=== PATIENT | female | born 1955 | race Caucasian/White ===

== ENCOUNTER 2018-09-28 07:32 | Day surgery (SDC) | payer MEDICARE, MEDICAID ==
[~2018-09-28] VITALS: Ht 165.1 cm; Wt 93.2 kg
[2018-09-28] VITALS (8 sets, daily range): BP systolic 107–121; BP diastolic 54–72
[2018-09-28] MEDS ORDERED: [UNRECOGNIZED DRUG - OTHER] PO (07:54)
[2018-09-28] MEDS ORDERED: TOPI100T18 PO (07:55)
[2018-09-28] MEDS ORDERED: SIMV40TA PO (07:56)
[2018-09-28] MEDS ORDERED: CHOL100046 PO (07:56)
[2018-09-28] MEDS ORDERED: fentaNYL/PF 50MCG/1 ML 2ML syringe ONE (08:42)
[2018-09-28] MEDS ORDERED: diphenhydrAMINE 50 mg/ml inj ONE (08:43)
[2018-09-28] MEDS ORDERED: LIDOcaine Viscous 15ml cup ONE (08:43)
[2018-09-28] MEDS ORDERED: MIDAZolam 5mg/5ml vial ONE (08:43)
[2018-09-28] MEDS ORDERED: glucagon, human recombinant 1mg kit ONE ×2 (08:43→08:44)
[2018-09-28] MEDS ORDERED: iohexol 300 MG/1 ML 50ml polymer ONE (08:44)
[2018-09-28] MEDS ORDERED: meperidine/PF 100mg/ml syringe ONE (08:44)
== END 2018-09-28 11:39 | disposition home or self-care (01) ==
LOC: GI LAB 07:32
PROVIDERS: ATTEND Internal Medicine Gastroenterology
DX: K80.51 Calculus of bile duct without cholangitis or cholecystitis with obstruction (principal); E78.5 Hyperlipidemia, unspecified; K21.9 Gastro-esophageal reflux disease without esophagitis; Z86.69 Personal history of other diseases of the nervous system and sense organs; Z79.899 Other long term (current) drug therapy; Z98.890 Other specified postprocedural states
CPT/HCPCS: 43262; 43264; 74328; 99153; G0500; J1200; J1610; J2175; J2250; J3010; J7030; Q9967; 99152; A4620

== ENCOUNTER 2021-02-20 05:20 | Day surgery (SDC) | payer MEDICARE, MEDICAID ==
[2021-02-12 12:02] LABS: EOSINOPHILS # (AUTO) 0.2 X10'3 (0-0.9); EOSINOPHILS % (AUTO) 5.1 % (0-6); LYMPHOCYTES # (AUTO) 1.5 X10'3 (1.1-4.8); LYMPHOCYTES % (AUTO) 43.1 % (21-51); MEAN CORPUSCULAR HEMOGLOBIN 32.9 PG (27.0-31.0); MEAN CORPUSCULAR HGB CONC 33.8 g/dL (33.0-36.5); MEAN CORPUSCULAR VOLUME 97.5 FL (78-98); MEAN PLATELET VOLUME 8.1 FL (7.4-10.4); MONOCYTES # (AUTO) 0.4 X10'3 (0-0.9); MONOCYTES % (AUTO) 11.8 % (2-12); NEUTROPHILS # (AUTO) 1.3 X10'3 (1.8-7.7); PRE OP HEMATOCRIT 41.5 % (35.0-45.0); PRE OP PLATELET COUNT 203 X10'3 (140-440); RED BLOOD COUNT 4.26 X10'6 (4.20-5.60); RED CELL DISTRIBUTION WIDTH 12.5 % (11.5-14.5)
[2021-02-12 12:15] LABS: PRE OP PROTIME 10.6 SECONDS (9.0-12.0)
[2021-02-12 12:16] LABS: ALBUMIN 3.7 G/DL (3.4-5.0); ALBUMIN/GLOBULIN RATIO 1.2 (1.1-1.5); ALKALINE PHOSPHATASE 99 IU/L (46-116); BLOOD UREA NITROGEN 11 MG/DL (7-18); BUN/CREATININE RATIO 13.1 (6.6-38.0); CALCIUM 9.1 MG/DL (8.5-10.1); CHLORIDE 109 MMOL/L (99-107); CREATININE 0.84 MG/DL (0.40-0.90); PRE OP ALT 24 U/L (30-65); PRE OP ANION GAP 7 (8-16); PRE OP AST 29 U/L (10-37); PRE OP BILIRUB, TOTAL 0.3 MG/DL (0.0-1.0); PRE OP GLUCOSE 91 MG/DL (70-104); PRE OP POTASSIUM 3.9 MMOL/L (3.4-5.1); PRE OP SODIUM 146 MMOL/L (135-145); TOTAL CARBON DIOXIDE 30.1 MMOL/L (24-32); TOTAL PROTEIN 6.8 G/DL (6.4-8.2); eGFR 68 ML/MIN
[2021-02-20] VITALS (27 sets, daily range): BP systolic 75–120; BP diastolic 34–70
[~2021-02-20] VITALS: Ht 167.6 cm; Wt 82.1 kg
[~2021-02-20 05:20] MED LIST: CHOL100046 PO; SIMV40TA PO; TOP100T PO; [UNRECOGNIZED DRUG - OTHER] PO; ringers solution, lacted 1,000 ML IV SCH
[2021-02-20] MEDS ORDERED: oxyCODONE SR 10mg (sust. release) tab -2 tabs (20mg) PO ONE (05:30)
[2021-02-20] MEDS ORDERED: famotidine 20mg tablet PO ONE (05:30)
[2021-02-20] MEDS ORDERED: cefazolin/dext.iso 2gm/100ml IV ONE (05:30)
[2021-02-20] MEDS ORDERED: acetaminophen 325mg tablet PO ONE (05:30)
[2021-02-20] MEDS ORDERED: vancomycin 1,500 MG in NS 300ml IV soln IV ONE (05:30)
[2021-02-20] MEDS ORDERED: celeCOXIB 100mg capsule PO ONE (05:30)
[2021-02-20] MEDS ORDERED: tranexamic acid 1gm/0.7% sal. 100 ML IV ONE (05:30)
[2021-02-20] MEDS ORDERED: metoclopramide 5 mg/ml inj IV ONE (05:30)
[2021-02-20] MEDS ORDERED: gabapentin 300mg capsule PO ONE (05:30)
[2021-02-20] MEDS ORDERED: LIDOcaine 1% (10mg/ml) 2ml vial ONE (05:59)
[2021-02-20] MEDS ORDERED: HYDROmorphone 1 mg/ml syringe IV PRN (06:35)
[2021-02-20] MEDS ORDERED: ondansetron/PF 4mg/2ml inj IV PRN ×2 (06:35→08:05)
[2021-02-20] MEDS ORDERED: diphenhydrAMINE 25mg capsule PO PRN ×2 (06:35)
[2021-02-20] MEDS ORDERED: HYDROmorphone inj. 0.5 MG/0.5 ML DISP.SYRIN IV PRN (06:35)
[2021-02-20] MEDS ORDERED: magnesium hydroxide 30ml (MOM) UD suspension PO PRN (06:35)
[2021-02-20] MEDS ORDERED: bisacodyl 10mg suppository rectal RC PRN (06:35)
[2021-02-20] MEDS ORDERED: acetaminophen 325mg tablet PO PRN (06:35)
[2021-02-20] MEDS ORDERED: oxyCODONE/APAP 10/325mg tablet PO PRN (06:35)
[2021-02-20] MEDS: potassium cl 20mEq in 1/2 NS 1,000 ML IV SCH ×2 (06:35→14:35)
[2021-02-20] MEDS ORDERED: ketorolac trometh. 30mg/ml inj. ONE (06:42)
[2021-02-20] MEDS ORDERED: epiNEPHrine 1 mg/ml inj ONE (06:42)
[2021-02-20] MEDS ORDERED: ROPIVAcaine 0.5% (5mg/ml) 30ml vial ONE ×2 (06:42→08:18)
[2021-02-20] MEDS ORDERED: vancomycin 1,000mg inj ONE (06:42)
[2021-02-20] MEDS ORDERED: cloNIDine hcl/PF 100mcg/ml inj ONE (06:42)
[2021-02-20] MEDS ORDERED: fentaNYL/PF 50MCG/1 ML 2ML syringe ONE (07:01)
[2021-02-20] MEDS ORDERED: MIDAZolam 1mg/ml 10ml vial ONE (07:01)
[2021-02-20] MEDS ORDERED: ePHEDrine 50MG/ML INJ. ONE (07:40)
[2021-02-20] MEDS: multivitamins, therapeutics tablet PO SCH (08:00)
[2021-02-20] MEDS ORDERED: [UNRECOGNIZED DRUG - OTHER] PO SCH (08:00)
[2021-02-20] MEDS ORDERED: non-formulary drug (Simvastatin (Zocor) 1 TAB) PO SCH (08:00)
[2021-02-20] MEDS ORDERED: ROPIVAcaine 0.2% (10 MG/5 ML) BOLUS INJECTION ADDCANAL PRN (08:05)
[2021-02-20] MEDS ORDERED: meperidine/PF 25mg/ml syringe IV PRN ×3 (08:05)
[2021-02-20] MEDS ORDERED: proCHLORperazine 10 MG/2 ml inj IV PRN (08:05)
[2021-02-20] MEDS ORDERED: morphine 2 MG/ML inj. syringe IV PRN (08:05)
[2021-02-20] MEDS ORDERED: ringers solution, lacted 1,000 ML IV SCH (08:05)
[2021-02-20] MEDS ORDERED: morphine 4 MG/ML inj SYRINge IV PRN (08:05)
[2021-02-20] MEDS: aspirin 325mg tablet PO SCH (08:30)
--- NOTE | 2021-02-20 09:00 | NUR ---
Received from OR via BED, accompanied by Anesthesiologist DR TANG and report given by Anesthesiologist. PT DROWSY, DENIES PAIN, LEFT KNEE W/DRSG, LEG WRAP, ICE PACK, ROGELIO DRSG W/GREEN LIGHT ILLUMINATION, ACB CATHETER INTACT. Addendum: 02/20/21 at 0936 by Marley Page RN Amended: Links added.
[2021-02-20] MEDS: ROPIVAcaine 0.2%/PF PUMP/bolus 545 ML ADDCANAL SCH (11:05)
--- NOTE | 2021-02-20 11:20 | NUR ---
PT AWAKE AND NON-SYMPTOMATIC W/LOWER BP, PT TALKING, AND TAKING IN ORAL FLUIDS, DR TANG IN AND OKAYED PT TO GO TO THE FLOOR, Report called to receiving nurse. Transferred via BED BY [facility], 1 BAG OF BELONGINGS W/GLASSES SENT W/PT TO ROOM 4014B, CALLED NURSES STATION AND NOTIFIED OF PTS ARRIVAL. Special Issues communicated to receiving nurse. YES. Addendum: 02/20/21 at 1129 by Marley Page RN Amended: Links added.
--- NOTE | 2021-02-20 11:49 | NUR ---
Patients blood pressure is 75/37 with a map of 55. She is awake, alert and oriented x4 talking to me in no acute distress. Strong pedal pulses, no s/s of bleeding on incision or ROGELIO dressing. 250ml bolus being given of lactated ringers.
[2021-02-20] MEDS ORDERED: PHEN100C12 PO (11:56)
[2021-02-20] MEDS ORDERED: tranexamic acid inj. 820 MG in normal saline 100ml IV soln 100 ML IV ONE (12:00)
[2021-02-20] MEDS: topiramate 100mg tablet PO SCH (12:20)
[2021-02-20] MEDS: gabapentin 300mg capsule PO SCH ×3 (12:20→20:25)
[2021-02-20] MEDS: oxyCODONE/APAP 10/325mg tablet PO PRN (12:30)
--- NOTE | 2021-02-20 12:32 | NUR ---
Blood pressure has still remained low with a map below 60. Second bolus of 250 cc NS given. TXA infusing now.
[2021-02-20] MEDS ORDERED: phenytoin sod ER 100mg capsule PO SCH (13:00)
--- NOTE | 2021-02-20 13:04 | NUR ---
Transexamic acid infused. Blood pressure now is 76/46 with a map of 56 heart rate of 60. She is alert and oriented, dressing is still clean dry and intact. Called Dr. Shields in regards to the patients persistent hypotension. Left message awaiting a call back.
--- NOTE | 2021-02-20 14:12 | NUR ---
Recieved orders from Dr. Shields for a liter bolus. Infusing now.
[2021-02-20] MEDS: cefazolin/dext.iso 2gm/100ml 100 ML IV SCH (16:13)
[2021-02-20] MEDS ORDERED: phenytoin sod ER 100mg capsule PO ONE (16:25)
--- NOTE | 2021-02-20 16:27 | NUR ---
Called and spoke with Dr. Shields regarding blood pressure after liter bolus. Her pressure on last reading was 105/36 with a map of 64 he is fine with this reading. IVF still infusing 125/hr. Also addressed home medication of phenytoin, patient takes 400mg in the morning not 100mg four times a day he said this is fine.
--- NOTE | 2021-02-20 18:18 | NUR ---
Problems reprioritized. Patient report given, questions answered & plan of care reviewed with Yumiko WATERS.
--- NOTE | 2021-02-20 18:46 | NUR ---
Patient in room ORTHO 4014. I have received report from Ashley WATERS and had the opportunity to ask questions and assume patient care.
[2021-02-20] MEDS ORDERED: VANCOMYCIN 1,500MG inj. 1,500 MG in normal saline 500ml IV soln 500 ML IV SCH (20:00)
[2021-02-20] MEDS: sennosides 8.6mg tablet PO SCH (20:25)
[2021-02-21] VITALS (7 sets, daily range): BP systolic 82–145; BP diastolic 42–62
[2021-02-21] MEDS: potassium cl 20mEq in 1/2 NS 1,000 ML IV SCH ×4 (00:18→22:35)
[2021-02-21] MEDS: cefazolin/dext.iso 2gm/100ml 100 ML IV SCH (00:19)
--- NOTE | 2021-02-21 04:39 | NUR ---
I have reviewed SRN assessment findings, edited as needed.
--- NOTE | 2021-02-21 06:33 | NUR ---
Problems reprioritized. Patient report given, questions answered & plan of care reviewed with Marj WATERS.
[2021-02-21 06:37] LABS: BASOPHILS % (AUTO) 0.5 % (0-1); EOSINOPHILS # (AUTO) 0.3 X10'3 (0-0.9); EOSINOPHILS % (AUTO) 5.3 % (0-6); HEMATOCRIT 34.5 % (35.0-45.0); HEMOGLOBIN 11.6 g/dl (12.0-16.0); LYMPHOCYTES # (AUTO) 1.1 X10'3 (1.1-4.8); LYMPHOCYTES % (AUTO) 22.6 % (21-51); MEAN CORPUSCULAR HEMOGLOBIN 33.2 PG (27.0-31.0); MEAN CORPUSCULAR HGB CONC 33.6 g/dL (33.0-36.5); MEAN CORPUSCULAR VOLUME 98.7 FL (78-98); MEAN PLATELET VOLUME 8.7 FL (7.4-10.4); MONOCYTES # (AUTO) 0.6 X10'3 (0-0.9); MONOCYTES % (AUTO) 11.6 % (2-12); NEUTROPHILS # (AUTO) 2.9 X10'3 (1.8-7.7); PLATELET COUNT 164 X10'3 (140-440); RED CELL DISTRIBUTION WIDTH 12.6 % (11.5-14.5); WHITE BLOOD COUNT 4.9 X10'3 (4.5-11.0)
[2021-02-21 07:15] LABS: POTASSIUM 4.4 MMOL/L (3.5-5.1)
[2021-02-21] MEDS ORDERED: normal saline 1000ml 1,000 ML IV ONE (07:20)
[2021-02-21] MEDS: topiramate 100mg tablet PO SCH (07:37)
[2021-02-21] MEDS: aspirin 325mg tablet PO SCH (07:37)
[2021-02-21] MEDS: multivitamins, therapeutics tablet PO SCH (07:37)
[2021-02-21] MEDS: phenytoin sod ER 100mg capsule PO SCH (07:37)
[2021-02-21] MEDS: atorvastatin 20mg tablet PO SCH (07:37)
[2021-02-21] MEDS: gabapentin 300mg capsule PO SCH ×3 (07:37→19:45)
[2021-02-21 08:06] LABS: ANION GAP 7 (8-16); CHLORIDE 112 MMOL/L (99-107); SODIUM 146 MMOL/L (135-145)
[2021-02-21] MEDS: oxyCODONE/APAP 10/325mg tablet PO PRN (13:41)
--- NOTE | 2021-02-21 14:48 | NUR ---
PTS DAUGHTER UPSET THAT HER COULD NOT COME UP AT THE SAME TIME HER. DAUGHTER YELLED AT ME THAT IT WAS UP TO ME IF HE CAN COME UP OR NOT, I EXPLAINED THAT IT WAS HOSPITAL POLICY, NOT MINE. SHE YELLED THAT I WAS NOT TAKING CARE OF HER MOM, STATED THAT I WAS ONLY IN THE ROOM ONE TIME. NOT TRUE HOWEVER PER RECORDS STATING OTHER ISSA. I EXPLAINED THAT I WOULD GO GET CHARGE NURSE AND THEY CAN EXPRESS THEIR FEELING TO HIM.
--- NOTE | 2021-02-21 17:30 | NUR ---
NOTIFIED DR FELDMAN RE: PT WILL STAY FOR ANOTHER NIGHT DUE TO DECREASED BP WHEN AMBULATING WITH PT
--- NOTE | 2021-02-21 18:37 | NUR ---
Problems reprioritized. Patient report given, questions answered & plan of care reviewed with JAYDON WATERS.
[2021-02-21] MEDS: sennosides 8.6mg tablet PO SCH (19:45)
[2021-02-21] MEDS: celeCOXIB 100mg capsule PO SCH (19:46)
--- NOTE | 2021-02-22 01:03 | NUR ---
reviewed assessment and edited as needed.
[2021-02-22] MEDS: ROPIVAcaine 0.2%/PF PUMP/bolus 545 ML ADDCANAL SCH (05:37)
[2021-02-22 06:00] VITALS: BP 99/45
--- NOTE | 2021-02-22 06:25 | NUR ---
Patient in room ORTHO 4014. I have received report from Yumiko Pineda and had the opportunity to ask questions and assume patient care.
[2021-02-22 06:48] LABS: BASOPHILS % (AUTO) 0.3 % (0-1); EOSINOPHILS # (AUTO) 0.2 X10'3 (0-0.9); EOSINOPHILS % (AUTO) 3.4 % (0-6); HEMATOCRIT 34.5 % (35.0-45.0); HEMOGLOBIN 11.6 g/dl (12.0-16.0); LYMPHOCYTES # (AUTO) 1.4 X10'3 (1.1-4.8); LYMPHOCYTES % (AUTO) 22.9 % (21-51); MEAN CORPUSCULAR HEMOGLOBIN 33.1 PG (27.0-31.0); MEAN CORPUSCULAR HGB CONC 33.5 g/dL (33.0-36.5); MEAN CORPUSCULAR VOLUME 98.7 FL (78-98); MEAN PLATELET VOLUME 8.7 FL (7.4-10.4); MONOCYTES # (AUTO) 0.8 X10'3 (0-0.9); MONOCYTES % (AUTO) 13.4 % (2-12); NEUTROPHILS # (AUTO) 3.6 X10'3 (1.8-7.7); PLATELET COUNT 167 X10'3 (140-440); RED CELL DISTRIBUTION WIDTH 12.8 % (11.5-14.5)
--- NOTE | 2021-02-22 07:03 | NUR ---
Patient in room ORTHO 4014. I have received report from EVELIN Calderon and had the opportunity to ask questions and assume patient care.
[2021-02-22 08:15] VITALS: BP_SYST 118; BP_SYST 135; BP_DIAS 54; BP_DIAS 60; BP_DIAS 61
[2021-02-22] MEDS: phenytoin sod ER 100mg capsule PO SCH (08:29)
[2021-02-22] MEDS: aspirin 325mg tablet PO SCH (08:30)
[2021-02-22] MEDS: atorvastatin 20mg tablet PO SCH (08:30)
[2021-02-22] MEDS: celeCOXIB 100mg capsule PO SCH (08:30)
[2021-02-22] MEDS: gabapentin 300mg capsule PO SCH (08:30)
[2021-02-22] MEDS: topiramate 100mg tablet PO SCH (08:30)
[2021-02-22] MEDS: multivitamins, therapeutics tablet PO SCH (08:30)
--- NOTE | 2021-02-22 08:56 | NUR ---
Pt being DC to home with family, her daughter is assuming care for her. Pt verbalizes understanding of all DC orders, wound care, OnQ use and DC, showering, activity, diet and the importance of following up with Dr Shields in 2 weeks. Pt asked many questions, all, answered. pt stated her daughter was going to help her get dress and take her home. Milad charge nurse aware of the discharge, education and follow up. pt educated on S & S of infection and when to call doctor benedict or come to the ED.
== END 2021-02-22 09:30 | disposition home or self-care (01) ==
LOC: PAS 05:20 → ORTHO 4S 06:39 → PAS 02-22 09:30
PROVIDERS: ATTEND Orthopaedic Surgery
DX: M17.12 Unilateral primary osteoarthritis, left knee (principal); M21.062 Valgus deformity, not elsewhere classified, left knee; G40.909 Epilepsy, unspecified, not intractable, without status epilepticus; F31.9 Bipolar disorder, unspecified; M19.072 Primary osteoarthritis, left ankle and foot; M85.80 Other specified disorders of bone density and structure, unspecified site; G89.18 Other acute postprocedural pain; E66.9 Obesity, unspecified; Z68.29 Body mass index [BMI] 29.0-29.9, adult; Z79.899 Other long term (current) drug therapy; Z98.890 Other specified postprocedural states; Z20.822 Contact with and (suspected) exposure to COVID-19; Z79.82 Long term (current) use of aspirin; Z79.01 Long term (current) use of anticoagulants
CPT/HCPCS: 27447; 36415; 64448; 71046; 73560; 76937; 80051; 80053; 82948; 85025; 85610; 85730; 86885; 86900; 86901; 87081; 97110; 97116; 97530; C1713; C1776; J0171; J0735; J1885; J2001; J2250; J2765; J2795; J3010; J3370; J7030; J7040; J7120; U0003; U0005; A4215; A7000; G0378; J3480

== ENCOUNTER 2021-04-08 13:08 | Day surgery (SDC) | payer MEDICARE, MEDICAID ==
[~2021-04-08] VITALS: Ht 165.1 cm; Wt 75.0 kg
[2021-04-08] VITALS (8 sets, daily range): BP systolic 110–139; BP diastolic 50–76
[~2021-04-08 13:08] MED LIST changes: +PHEN100C12 PO; -[UNRECOGNIZED DRUG - OTHER] PO; -ringers solution, lacted 1,000 ML IV SCH
[2021-04-08] MEDS ORDERED: fentaNYL/PF 50MCG/1 ML 2ML syringe ONE ×2 (13:37→13:38)
[2021-04-08] MEDS ORDERED: glucagon, human recombinant 1mg kit ONE (13:38)
[2021-04-08] MEDS ORDERED: LIDOcaine Viscous 15ml cup ONE (13:38)
[2021-04-08] MEDS ORDERED: levoFLOXACIN-Levaquin 500mg/D5 100 ML IV ONE (13:38)
[2021-04-08] MEDS ORDERED: iohexol 300 MG/1 ML 50ml polymer ONE (13:38)
[2021-04-08] MEDS ORDERED: MIDAZolam 1 MG/ML 5ML VIAL ONE (13:38)
[2021-04-08] MEDS ORDERED: diphenhydrAMINE 50 mg/ml inj ONE (13:47)
[2021-04-08] MEDS ORDERED: VITAMIN D PO (13:55)
== END 2021-04-08 16:10 | disposition home or self-care (01) ==
LOC: GI LAB 13:08
PROVIDERS: ATTEND Internal Medicine Gastroenterology
DX: K80.50 Calculus of bile duct without cholangitis or cholecystitis without obstruction (principal); K83.8 Other specified diseases of biliary tract; G40.909 Epilepsy, unspecified, not intractable, without status epilepticus; Z79.899 Other long term (current) drug therapy
CPT/HCPCS: 43264; 74328; 99153; C1769; G0500; J1200; J1610; J1956; J2250; J3010; J7040; Q9967; 99152; A4620

== ENCOUNTER 2021-07-10 07:07 | Day surgery (SDC) | payer MEDICARE, MEDICAID ==
[2021-07-04 12:07] LABS: BASOPHILS % (AUTO) 0.8 % (0-1); EOSINOPHILS # (AUTO) 0.1 X10'3 (0-0.9); EOSINOPHILS % (AUTO) 2.7 % (0-6); LYMPHOCYTES # (AUTO) 1.6 X10'3 (1.1-4.8); LYMPHOCYTES % (AUTO) 43.3 % (21-51); MEAN CORPUSCULAR HEMOGLOBIN 31.5 PG (27.0-31.0); MEAN CORPUSCULAR HGB CONC 32.4 g/dL (33.0-36.5); MEAN CORPUSCULAR VOLUME 97.1 FL (78-98); MEAN PLATELET VOLUME 7.7 FL (7.4-10.4); MONOCYTES # (AUTO) 0.4 X10'3 (0-0.9); MONOCYTES % (AUTO) 10.5 % (2-12); NEUTROPHILS # (AUTO) 1.6 X10'3 (1.8-7.7); NEUTROPHILS % (AUTO) 42.7 % (42-75); PRE OP HEMATOCRIT 43.5 % (35.0-45.0); PRE OP HEMOGLOBIN 14.1 g/dL (12.0-16.0); PRE OP PLATELET COUNT 238 X10'3 (140-440); RED BLOOD COUNT 4.48 X10'6 (4.20-5.60); RED CELL DISTRIBUTION WIDTH 13.9 % (11.5-14.5)
[2021-07-04 12:22] LABS: ALBUMIN 3.6 G/DL (3.4-5.0); ALBUMIN/GLOBULIN RATIO 1.1 (1.1-1.5); ALKALINE PHOSPHATASE 132 IU/L (46-116); BLOOD UREA NITROGEN 27 MG/DL (7-18); CHLORIDE 108 MMOL/L (99-107); PRE OP ALT 23 U/L (30-65); PRE OP ANION GAP 7 (8-16); PRE OP AST 20 U/L (10-37); PRE OP BILIRUB, TOTAL 0.3 MG/DL (0.0-1.0); PRE OP GLUCOSE 87 MG/DL (70-104); PRE OP POTASSIUM 3.9 MMOL/L (3.4-5.1); PRE OP SODIUM 147 MMOL/L (135-145); TOTAL CARBON DIOXIDE 31.6 MMOL/L (24-32); eGFR 63 ML/MIN
[2021-07-10] VITALS (14 sets, daily range): BP systolic 100–129; BP diastolic 46–66
[~2021-07-10] VITALS: Ht 165.1 cm; Wt 78.7 kg
[~2021-07-10 07:07] MED LIST changes: +BUPIVAcaine/PF 2.5mg/ml (0.25%) 10ml vial ONE; -CHOL100046 PO; +INDOCYANINE GREEN 25 MG/10 ML VIAL IV ONE; +LIDOcaine 1% 30ml preserv. free vial ONE; +VITAMIN D PO; +cefazolin/dext.iso 2gm/100ml IV ONE; +famotidine 20mg tablet PO ONE; +ringers solution, lacted 1,000 ML IV SCH
[2021-07-10] MEDS ORDERED: ondansetron/PF 4mg/2ml inj IV PRN (09:20)
[2021-07-10] MEDS ORDERED: ringers solution, lacted 1,000 ML IV SCH (09:20)
[2021-07-10] MEDS ORDERED: morphine 4 MG/ML inj SYRINge IV PRN (09:20)
[2021-07-10] MEDS ORDERED: labetalol 20mg/4ml (5mg/ml) syringe IV PRN (09:20)
[2021-07-10] MEDS ORDERED: hydrALAZINE 20mg/ml inj. IV PRN (09:20)
[2021-07-10] MEDS ORDERED: fentaNYL/PF 50MCG/1 ML 2ML syringe IV PRN ×2 (09:20)
[2021-07-10] MEDS ORDERED: morphine 2 MG/ML inj. syringe IV PRN (09:20)
[2021-07-10] MEDS ORDERED: sevoflurane 250ml liquid IH ONE (09:25)
[2021-07-10] MEDS ORDERED: dexamethasone sod phosphate 10mg/ml inj ONE (09:25)
[2021-07-10] MEDS ORDERED: neostigmine methylsulfate 1 MG/ML 10ml vial ONE (09:25)
[2021-07-10] MEDS ORDERED: midazolam 1 mg/ML 2ml injection ONE (09:32)
[2021-07-10] MEDS ORDERED: fentaNYL/PF 50MCG/1 ML 2ML syringe ONE (09:32)
[2021-07-10] MEDS ORDERED: LIDOcaine 2% (20mg/ml) 5ml vial ONE (09:37)
[2021-07-10] MEDS ORDERED: ondansetron/PF 4mg/2ml inj ONE (09:37)
[2021-07-10] MEDS ORDERED: rocuronium 10mg/ml inj IV ONE (09:37)
[2021-07-10] MEDS ORDERED: propofol inj 20 ML IV ONE (09:37)
[2021-07-10] MEDS ORDERED: glycopyrrolate 0.2mg/ml inj ONE (09:38)
--- NOTE | 2021-07-10 10:40 | NUR ---
ADMITTED TO PACU FROM OR ACCOMPANIED BY ANESTHESIA. INTIAL PHYSICAL ASSESSMENT DONE AND RECORDED. REPORT RECEIVED FROM ANESTHESIA.
[2021-07-10] MEDS ORDERED: HYDROcodone/acetaminophen 5mg/325mg tablet PO PRN ×2 (10:50)
[2021-07-10] MEDS ORDERED: meperidine/PF 25mg/ml syringe ONE (10:58)
[2021-07-10] MEDS ORDERED: meperidine/PF 25mg/ml syringe IV PRN (11:00)
--- NOTE | 2021-07-10 12:30 | NUR ---
DISCHARGE CRITERIA MET, DISCHARGE INSTRUCTIONS GIVEN, DEMONSTRATES VERBAL UNDERSTANDING. DISCHARGED HOME IN GOOD CONDITION.
== END 2021-07-10 12:30 | disposition home or self-care (01) ==
LOC: PAS 07:07
PROVIDERS: ATTEND Surgery
DX: K80.00 Calculus of gallbladder with acute cholecystitis without obstruction (principal); G40.909 Epilepsy, unspecified, not intractable, without status epilepticus; E78.5 Hyperlipidemia, unspecified; F31.9 Bipolar disorder, unspecified; M19.90 Unspecified osteoarthritis, unspecified site; E66.9 Obesity, unspecified; Z68.28 Body mass index [BMI] 28.0-28.9, adult; Z79.899 Other long term (current) drug therapy; Z98.890 Other specified postprocedural states; Z96.652 Presence of left artificial knee joint; Z20.822 Contact with and (suspected) exposure to COVID-19; Z81.8 Family history of other mental and behavioral disorders; Z82.49 Family history of ischemic heart disease and other diseases of the circulatory system
CPT/HCPCS: 36415; 47563; 80053; 82948; 85025; 93005; J1100; J2001; J2175; J2250; J2405; J2704; J2710; J3010; J3490; J7120; U0003; U0005; Z7506; Z7508; Z7512; 88304; A4215; A4618; A7000

== ENCOUNTER 2021-08-21 12:56 | Outpatient (CLI) | payer MEDICARE, MEDICAID ==
[~2021-08-21 12:56] MED LIST changes: -BUPIVAcaine/PF 2.5mg/ml (0.25%) 10ml vial ONE; -INDOCYANINE GREEN 25 MG/10 ML VIAL IV ONE; -LIDOcaine 1% 30ml preserv. free vial ONE; -cefazolin/dext.iso 2gm/100ml IV ONE; -famotidine 20mg tablet PO ONE; -ringers solution, lacted 1,000 ML IV SCH
[2021-08-21] MEDS ORDERED: COVID-19 VACC, MRNA(PFIZER)/PF--BNT162b2 syringe IMVAC ONE (12:58)
== END 2021-08-21 23:59 | disposition home or self-care (01) ==
LOC: COVVAC 12:56
PROVIDERS: ATTEND Internal Medicine Infectious Disease
DX: Z23 Encounter for immunization (principal)
CPT/HCPCS: 0001A; 91300